=== PATIENT | male | born 2000 | race American Indian/Alaskan Native ===

== ENCOUNTER 2024-06-09 14:51 | Emergency (ER) | payer OTHER, SELFPAY ==
[2024-06-09 15:00] VITALS: BP 135/81; PULSE 84; RESP 16; TEMP 36.4; O2SAT 100
--- NOTE | 2024-06-09 15:58 | ED.GENADULT ---
HPI - General Adult General Chief complaint: Extremity Injury, Lower Stated complaint: WOUND ON BILATERAL LEGS Time Seen by Provider: 06/09/24 15:22 Source: patient Mode of arrival: ambulatory Limitations: no limitations History of Present Illness HPI narrative: 23 YEARS OLD / MALE CAME TO THE EMERGENCY ROOM COMPLAINING OF INCREASED PAIN AT THE CHRONIC WOUND AND THE LEFT LOWER LEG. PATIENT IS TELLING ME THAT HE HAD HISTORY OF RECURRENT WOUND ON THE LEFT LOWER LEG FOR A WHILE, LAST TIME WAS 6 MONTHS AGO, OVER THE LAST 5 DAYS GETTING WARM A AND MORE ITCHY THAN USUAL. HE DENIES ANY TRAUMA, FEVER, CHILLS, NAUSEA, VOMITING. PATIENT DOES NOT KNOW THE NAME OF THE WOUND AND WHAT WAS DIAGNOSIS BACK IN [place] Related Data Allergies Allergy/AdvReac Type Severity Reaction Status Date / Time No Known Allergies Allergy Verified 06/09/24 15:28 Review of Systems Review of Systems: All systems reviewed & are unremarkable except as noted in HPI and below Exam Narrative: GENERAL APPEARANCE: WELL-DEVELOPED, WELL-NOURISHED SKIN: NORMAL COLOR LEFT LOWER LEG SHOWED 3 X 4 CM SCAB ROUGHLY 0.5 CM ABOVE THE SURFACE OF THE SKIN, TENDER TO TOUCH, BLACK DISCOLORATION, PATIENT HAVE BLACK SKIN, NO DISCHARGE, RED STREAK GOING UP TO THE LEFT THIGH. PATIENT HAVE SIMILAR SKIN DISORDER ON THE LATERAL SIDE OF THE RIGHT ANKLE WHICH IS NOT TENDER AND HAVE NO COMPLAIN ABOUT IT AT THIS TIME HEAD: NORMOCEPHALIC, NONTRAUMATIC EYES: CLEAR CONJUNCTIVA ENT: OROPHARYNX NORMAL, EARS NORMAL, NOSE NORMAL NECK: SUPPLE, NONTENDER CHEST AND RESPIRATORY: AIRWAY PATENT, NO RESPIRATORY DISTRESS, NO ACCESSORY MUSCLE USE HEART: REGULAR RATE/RHYTHM ABDOMEN: SOFT, NONTENDER, NO ORGANOMEGALY, QUIET BOWEL SOUNDS VASCULAR: NORMAL PERIPHERAL PULSES, NORMAL CAPILLARY REFILL. 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 TESTED, NO GROSS MOTOR DEFICIT Course Vital Signs Vital signs: Vital Signs Temperature 36.4 C L 06/09/24 15:00 Pulse Rate 84 06/09/24 15:00 Respiratory Rate 16 06/09/24 15:00 Blood Pressure 135/81 06/09/24 15:00 Pulse Oximetry 100 06/09/24 15:00 Oxygen Delivery Room Air 06/09/24 15:00 Temperature 36.4 C L 06/09/24 15:00 Pulse Rate 84 06/09/24 15:00 Respiratory Rate 16 06/09/24 15:00 Blood Pressure 135/81 06/09/24 15:00 Pulse Oximetry 100 06/09/24 15:00 Oxygen Delivery Room Air 06/09/24 15:00 Medical Decision Making Differential Diagnosis Differential Diagnosis: DIFFERENTIAL DIAGNOSIS INCLUDE ECZEMA OR CHRONIC SKIN DISORDER WITH SECONDARY BACTERIAL INFECTION. VITAL SIGNS ARE STABLE PHYSICAL EXAMINATION ABOVE MY PLAN TO TREAT PATIENT FOR SECONDARY BACTERIAL INFECTION WITH CLINDAMYCIN AND MUPIROCIN TOPICAL CREAM THE PT WAS DISCHARGED TO HOME.THE PT,S CONDITION UPON DISCHARGE WAS FAIR,EDUCATION WAS PROVIDED TO THE PT IN REFERENCE TO THE FINAL IMPRESSION,DISCHARGE STUDY RESULTS,TREATMENT,PROGNOSIS AND NEED FOR FOLLOW UP . Vital Signs Vital Signs: Vital Signs Temperature 36.4 C L 06/09/24 15:00 Pulse Rate 84 06/09/24 15:00 Respiratory Rate 16 06/09/24 15:00 Blood Pressure 135/81 06/09/24 15:00 Pulse Oximetry 100 06/09/24 15:00 Oxygen Delivery Room Air 06/09/24 15:00 Temperature 36.4 C L 06/09/24 15:00 Pulse Rate 84 06/09/24 15:00 Respiratory Rate 16 06/09/24 15:00 Blood Pressure 135/81 06/09/24 15:00 Pulse Oximetry 100 06/09/24 15:00 Oxygen Delivery Room Air 06/09/24 15:00 Critical Care Time Critical Care Time Critical Care Time: No Discharge Plan Discharge Clinical Impression: Infected wound Patie
[2024-06-09 16:21] VITALS: BP 125/87; PULSE 89; RESP 18; TEMP 37.3; O2SAT 100
== END 2024-06-09 16:22 | disposition home or self-care (01) ==
LOC: ANHED 16:09
PROVIDERS: Emergency Provider Emergency Medicine
DX: L08.9 Local infection of the skin and subcutaneous tissue, unspecified (principal)
CPT/HCPCS: 99283